=== PATIENT | female | born 1990 | race Caucasian/White ===

== ENCOUNTER 2019-09-24 10:42 | Emergency (ER) | payer MEDICAID, OTHER ==
--- NOTE | 2019-09-24 11:28 | ER Document Report ---
ED Medical Screen (RME) - General Chief Complaint: Vag Bleeding, +preg <12wks Stated Complaint: VAGINAL BLEEDING Time Seen by Provider: 09/24/19 11:22 Primary Care Provider: ANA M DARLING [Primary Care Provider] - Follow up as needed - [facility] Notes: 09/24/19 11:26 28-year-old female 1 para 0 who is 13 weeks presents to the emergency room for vaginal bleeding postcoital last night, states she passed a golf size blood clot, states she has not had much bleeding this morning. Contacted the health department was currently her IN FLIGHT TECHNICIAN who advised her to come to the emergency room. Patient is taking prenatals. Reports mild cramping. Denies any chest pain, fever chills, shortness of breath. I have greeted and performed a rapid initial assessment of this patient. A comprehensive ED assessment and evaluation of the patient, analysis of test results and completion of the medical decision making process will be conducted by additional ED providers. PHYSICAL EXAMINATION: GENERAL: Well-appearing, well-nourished and in no acute distress. CV: s1, s2 regular LUNGS: No respiratory distress abd: lower abd pain Musculoskeletal: Normal range of motion Past Medical History - Social History Chew tobacco use (# tins/day): No Frequency of alcohol use: None Drug Abuse: None Physical Exam - Vital signs Vitals: Temp Pulse Resp BP Pulse Ox 98.9 F 112 H 18 107/59 L 100 09/24/19 10:46 09/24/19 10:46 09/24/19 10:46 09/24/19 10:46 09/24/19 10:46 Course - Vital Signs Vital signs: Temp Pulse Resp BP Pulse Ox 98.9 F 112 H 18 107/59 L 100 09/24/19 10:46 09/24/19 10:46 09/24/19 10:46 09/24/19 10:46 09/24/19 10:46 Doctor's Discharge - Discharge Referrals: ANA M DARLING [Primary Care Provider] - Follow up as needed
[2019-09-24 11:53] LABS: ABSOLUTE LYMPHOCYTES (AUTO) 1.2 10^3/uL (0.5-4.7); ABSOLUTE MONOCYTES (AUTO) 0.5 10^3/uL (0.1-1.4); ABSOLUTE NEUT (AUTO) 6.6 10^3/uL (1.7-8.2); BASOPHILS % (AUTO) 0.2 % (0-2); EOSINOPHILS % (AUTO) 0.4 % (0-6); HEMATOCRIT 36.6 % (36.0-47.0); HEMOGLOBIN 12.6 g/dL (12.0-15.5); LYMPHOCYTES % (AUTO) 14.4 % (13-45); MEAN CORPUSCULAR HGB CONC 34.4 g/dL (32.0-36.0); MEAN CORPUSCULAR VOLUME 84 fl (80-97); MONOCYTES % (AUTO) 5.6 % (3-13); PLATELET COUNT 280 10^3/uL (150-450); RED BLOOD COUNT 4.35 10^6/uL (3.72-5.28); RED CELL DISTRIBUTION WIDTH 14.3 % (11.5-14.0); SEGMENTED NEUTROPHILS % (AUTO) 79.4 % (42-78); TOTAL CELLS COUNTED % (AUTO) 100 %; WHITE BLOOD COUNT 8.4 10^3/uL (4.0-10.5)
[2019-09-24 12:01] LABS: AMORPHOUS SEDIMENT,URINE TRACE /HPF; APPEARANCE,URINE CLOUDY; BILIRUBIN,URINE NEGATIVE (NEGATIVE); COLOR,URINE YELLOW; GLUCOSE, URINE NEGATIVE (NEGATIVE); KETONES,URINE NEGATIVE (NEGATIVE); LEUKOCYTE ESTERASE,URINE NEGATIVE (NEGATIVE); NITRITE,URINE NEGATIVE (NEGATIVE); PROTEIN,URINE NEGATIVE (NEGATIVE); URINE SPECIFIC GRAVITY 1.017
[2019-09-24 12:15] LABS: ALBUMIN 4.3 g/dL (3.5-5.0); ALKALINE PHOSPHATASE 42 U/L (38-126); ANION GAP 6 (5-19); ASPARTATE AMINO TRANSFERASE 25 U/L (14-36); BILIRUBIN,TOTAL 0.5 mg/dL (0.2-1.3); BLOOD UREA NITROGEN 8 mg/dL (7-20); CARBON DIOXIDE 25 mmol/L (22-30); CHLORIDE 106 mmol/L (98-107); GLUCOSE 90 mg/dL (75-110); POTASSIUM 3.7 mmol/L (3.6-5.0); TOTAL PROTEIN 7.6 g/dL (6.3-8.2)
--- NOTE | 2019-09-24 12:31 | RADIOLOGY REPORT (SQ) ---
EXAM DESCRIPTION: U/S [id number] TRNABD 1GES W/ODOP IMAGES COMPLETED DATE/TIME: 09/24/2019 12:19 pm REASON FOR STUDY: vaginal bleeding, 13w, COMPARISON: None. TECHNIQUE: Transabdominal static and realtime grayscale images acquired of the pelvis. Additional se lected spectral and color Doppler images recorded. All images stored on PACs. bHCG: Not available CLINICAL DATES: LMP 06/19/2019 13 weeks 6 days LIMITATIONS: None. FINDINGS: FETUS: Single Living intrauterine . ULTRASOUND EGA: 13 weeks 6 days ULTRASOUND TAI: 03/25/2020 EFW: Not applicable less than 20 weeks. CRL: 7.9 cm FHR: 158 beats per minute. SURVEY: Too early to assess. AMNIOTIC FLUID: Adequate amount. PLACENTA: Not yet developed due to early gestation. SUBCHORIONIC BLEED: Yes SIZE OF BLEED: 2.6 x 0.7 x 0.9 cm. UTERUS: No masses. No anomalies. CERVICAL LENGTH: 3 cm Closed. RIGHT ADNEXA: Normal ovary with normal vascular flow. No adnexal free fluid. No adnexal masses. LEFT ADNEXA: Normal ovary with normal vascular flow. No adnexal free fluid. No adnexal masses. FREE FLUID: None. OTHER: No other significant finding. IMPRESSION: LIVING INTRAUTERINE . EGA 13 weeks 6 days Trimester of : Second trimester - 13 weeks 1 day to 27 weeks 6 days. TECHNICAL DOCUMENTATION: JOB ID: [id number] 2010 [employer]- All Rights Reserved rev Reading location - IP/workstation name: [email or web address]
--- NOTE | 2019-09-24 15:13 | ER Document Report ---
ED General - General Chief Complaint: Vag Bleeding, +preg <12wks Stated Complaint: VAGINAL BLEEDING Time Seen by Provider: 09/24/19 11:22 Primary Care Provider: PHONG,NO [Primary Care Provider] - Follow up as needed Notes: 28-year-old female who is 13 weeks 6 days G1, P0 presents emergency department complaining of a golf ball sized clot associated with bright red vaginal bleeding last evening that lasted approximately 1 hour after having intercourse. Patient states she has not had any bleeding since last evening, complains of mild lower abdominal pressure that is constant. Denies prior bleeding in this . States she is following with the health department and has a follow-up appointment a week and a half from now. - Related Data Allergies/Adverse Reactions: No Known Allergies Allergy (Unverified 09/24/19 11:30) Past Medical History - General Information source: Patient - Social History Smoking Status: Former Smoker Chew tobacco use (# tins/day): No Frequency of alcohol use: None Drug Abuse: None Family History: Reviewed & Not Pertinent Patient has homicidal ideation: No Review of Systems - Review of Systems Constitutional: No symptoms reported Gastrointestinal: See HPI Female Genitourinary: See HPI -: Yes All other systems reviewed and negative Physical Exam - Vital signs Vitals: Temp Pulse Resp BP Pulse Ox 98.9 F 112 H 18 107/59 L 100 09/24/19 10:46 09/24/19 10:46 09/24/19 10:46 09/24/19 10:46 09/24/19 10:46 Interpretation: Tachycardic - Notes Notes: GENERAL: Alert, interacts well. No acute distress. HEAD: Normocephalic, atraumatic EYES: Pupils equal, round and reactive to light, extraocular movements intact. ENT: Oral mucosa moist, tongue midline. NECK: Full range of motion, supple, trachea midline. LUNGS: Clear to auscultation bilaterally, no wheezes, rales or rhonchi, no respiratory distress. HEART: Regular rate and rhythm, no murmurs, gallops, rubs. ABDOMEN: Soft, nontender, uterus barely palpable above the pubic symphysis, appropriate for dates, bowel sounds present in all 4 quadrants. EXTREMITIES: Moves all 4 extremities spontaneously, no edema. No cyanosis. NEUROLOGICAL: Alert and oriented x3, normal speech. PSYCH: Normal mood, normal affect. SKIN: Warm, Dry, normal turgor, no rashes or lesions noted. Course - Re-evaluation Re-evalutation: 09/24/19 15:09 Obstetrics Ultrasound 09/24/19 11:25 IMPRESSION: LIVING INTRAUTERINE . EGA 13 weeks 6 days Trimester of : Second trimester - 13 weeks 1 day to 27 weeks 6 days. There is a 2.6 x 0.7 x 0.9 cm subchorionic hemorrhage. Patient is AB+, RhoGam is not indicated, blood work generally unremarkable. Patient counseled on pelvic rest and discharged home. - Vital Signs Vital signs: Temp Pulse Resp BP Pulse Ox 98.9 F 112 H 18 107/59 L 100 09/24/19 10:46 09/24/19 10:46 09/24/19 10:46 09/24/19 10:46 09/24/19 10:46 - Laboratory Result Diagrams: 09/24/19 11:35 09/24/19 11:35 Laboratory results interpreted by me: 09/24/19 09/24/19 09/24/19 11:30 11:35 11:35 RDW 14.3 H Seg Neutrophils % 79.4 H Sodium 136.9 L Creatinine 0.43 L Serum HCG, Qual Urine Urobilinogen 2.0 H 09/24/19 11:35 RDW Seg Neutrophils % Sodium Creatinine Serum HCG, Qual POSITIVE H Urine Urobilinogen Discharge - Discharge Clinical Impression: Subchorionic hematoma Qualifiers: Fetus number: single or unspecified fetus Trimester: first trimester Qualified Code(s): O41.8X10 - Other specified disorders of amniotic fluid and membranes, first trimester, not applicable or unspecified; O46.8X1 - Other antepartum hemorrhage, first trimester Condition: Stable Disposition: HOME, SELF-CARE Additional Instructions: You have a subchorionic hematoma. It is 2.6 x 0.7 x 0.9 cm. Your cervix is closed. You should remain on complete pelvic rest for the next 2 weeks. This means no douching, no sex, no tampons, no anything in the vagina. If you develop further bright red bleeding, particularly if it is more than you had last night you should return to the emergency department. A small amount of dark brown blood is normal, and a very small amount of bright red blood can also be normal. Usually your will progress to a full-term without any further complications from this bleed. It is still important that you follow-up with your APPLICATION INFRASTRUCTURE ENGINEER as an outpatient. You do not need to be on bedrest. Please keep your follow-up appointment with the health department next Monday. Forms: Return to Work
[2019-09-24 15:43] VITALS: BP 92/58
== END 2019-09-24 18:30 | disposition home or self-care (01) ==
LOC: ER 10:42
DX: O20.8 Other hemorrhage in early pregnancy (principal); Z3A.13 13 weeks gestation of pregnancy; Z87.891 Personal history of nicotine dependence
CPT/HCPCS: 36415; 76801; 80053; 81001; 83690; 84703; 85025; 86900; 86901; 99284

== ENCOUNTER 2020-02-17 11:00 | Outpatient (CLI) | payer MEDICAID ==
--- NOTE | 2020-02-17 11:47 | Non Stress Test Report ---
Non Stress Test Datetime Report Generated by CPN: 02/17/2020 11:47 DEMOGRAPHIC Test Number: 1 EGA NST: 34.5 INDICATION Indication for Study (NST) Other: repeat from providers office; 2 vessel cord VITAL SIGNS Temperature - NST: 97.3 Pulse - NST: 115 RESP - NST: 18 NBPSYS NST: 116 NBPDIA NST: 71 MONITORING Monitor Explained: Monitor Explained; Test Explained; Patient Verbalized Understanding (Annotations: Data stored by [facility] on behalf of user) Time on Monitor: 02/17/2020 11:10 Time off Monitor: 02/17/2020 11:40 NST Duration: 30 NST INTERVENTIONS NST Interventions: PO Hydration; Reposition Patient Physician Notified NST: N Galeas, CNM BABY A: [id number] BABY A Movement : Present Contraction Frequency : 0 FHR Baseline : 135 Accelerations : 15X15 Decelerations : None Variability : Moderate 6-25bpm NST Review: Meets Criteria for Reactive NST NST Review and Verified By : Eric Arroyo RN NST Results: Reactive NST REPORT Report Trigger: Send Report
== END 2020-02-17 11:42 | disposition home or self-care (01) ==
LOC: LC 11:00
PROVIDERS: ATTEND Obstetrics & Gynecology
DX: Z34.03 Encounter for supervision of normal first pregnancy, third trimester (principal); Z3A.34 34 weeks gestation of pregnancy
CPT/HCPCS: 59025

== ENCOUNTER 2020-03-04 17:16 | Outpatient (CLI) | payer MEDICAID ==
[2020-03-04 18:30] LABS: APPEARANCE,URINE SLIGHTLY-CLOUDY; BILIRUBIN,URINE NEGATIVE (NEGATIVE); COLOR,URINE YELLOW; GLUCOSE, URINE NEGATIVE (NEGATIVE); KETONES,URINE NEGATIVE (NEGATIVE); LEUKOCYTE ESTERASE,URINE TRACE (NEGATIVE); NITRITE,URINE NEGATIVE (NEGATIVE); PROTEIN,URINE NEGATIVE (NEGATIVE); URINE SPECIFIC GRAVITY 1.021; UROBILINOGEN,URINE NEGATIVE mg/dL (<2.0)
--- NOTE | 2020-03-04 18:38 | Non Stress Test Report ---
Non Stress Test Datetime Report Generated by CPN: 03/04/2020 18:38 DEMOGRAPHIC Test Number: 2 EGA NST: 37.0 INDICATION Indication for Study (NST) Other: labor check VITAL SIGNS Temperature - NST: 97.3 Pulse - NST: 113 RESP - NST: 18 NBPSYS NST: 113 NBPDIA NST: 74 MONITORING Time on Monitor: 03/04/2020 17:38 Time off Monitor: 03/04/2020 18:38 NST Duration: 60 NST INTERVENTIONS NST Interventions: PO Hydration; Reposition Patient Physician Notified NST: M Grace MD BABY A: [id number] BABY A Movement : Present Contraction Frequency : irreg FHR Baseline : 135 Accelerations : 15X15 Decelerations : None Variability : Moderate 6-25bpm NST Review: Meets Criteria for Reactive NST NST Results: Reactive NST REPORT Report Trigger: Send Report
[2020-03-04 18:47] LABS: URINE AMPHETAMINES SCREEN NEGATIVE; URINE BARBITURATES SCREEN NEGATIVE; URINE BENZODIAZEPINES SCREEN NEGATIVE; URINE COCAINE SCREEN NEGATIVE; URINE MARIJUANA (THC) SCREEN NEGATIVE; URINE METHADONE SCREEN NEGATIVE; URINE PHENCYCLIDINE SCREEN NEGATIVE
== END 2020-03-04 18:52 | disposition home or self-care (01) ==
LOC: LC 17:16
PROVIDERS: ATTEND Obstetrics & Gynecology
DX: O47.03 False labor before 37 completed weeks of gestation, third trimester (principal); Z3A.36 36 weeks gestation of pregnancy
CPT/HCPCS: 80307; 81005; 84112

== ENCOUNTER 2020-03-27 08:12 | Outpatient (CLI) | payer MEDICAID ==
[2020-03-27 09:02] LABS: APPEARANCE,URINE CLOUDY; BILIRUBIN,URINE NEGATIVE (NEGATIVE); COLOR,URINE YELLOW; GLUCOSE, URINE NEGATIVE (NEGATIVE); KETONES,URINE NEGATIVE (NEGATIVE); LEUKOCYTE ESTERASE,URINE NEGATIVE (NEGATIVE); NITRITE,URINE NEGATIVE (NEGATIVE); PROTEIN,URINE 30 mg/dL (NEGATIVE); URINE SPECIFIC GRAVITY 1.026; UROBILINOGEN,URINE NEGATIVE mg/dL (<2.0)
[2020-03-27 09:46] LABS: URINE AMPHETAMINES SCREEN NEGATIVE; URINE BARBITURATES SCREEN NEGATIVE; URINE BENZODIAZEPINES SCREEN NEGATIVE; URINE COCAINE SCREEN NEGATIVE; URINE MARIJUANA (THC) SCREEN NEGATIVE; URINE METHADONE SCREEN NEGATIVE; URINE PHENCYCLIDINE SCREEN NEGATIVE
[2020-03-27] MEDS ORDERED: HYDROXYZINE PAMOATE 50 MG CAPSULE PO ONE (10:19)
[2020-03-27] MEDS ORDERED: HYDROXYZINE PAMOATE 50 MG CAPSULE ONE (10:30)
--- NOTE | 2020-03-27 10:46 | Non Stress Test Report ---
Non Stress Test Datetime Report Generated by CPN: 03/27/2020 10:46 DEMOGRAPHIC Test Number: 3 EGA NST: 40.2 INDICATION Indication for Study (NST) Other: labor check VITAL SIGNS Temperature - NST: 97.8 Pulse - NST: 87 RESP - NST: 14 NBPSYS NST: 108 NBPDIA NST: 69 MONITORING Time on Monitor: 03/27/2020 08:30 Time off Monitor: 03/27/2020 10:30 NST Duration: 120 NST INTERVENTIONS NST Interventions: PO Hydration; Reposition Patient Physician Notified NST: Dr Davis BABY A: [id number] BABY A Movement : Present Contraction Frequency : 7-8 FHR Baseline : 135 Accelerations : 15X15 Decelerations : None Variability : Moderate 6-25bpm NST Review: Meets Criteria for Reactive NST NST Review and Verified By : JAQUAN Green NSLito Results: Reactive NST REPORT Report Trigger: Send Report
== END 2020-03-27 10:46 | disposition home or self-care (01) ==
LOC: LC 08:12
PROVIDERS: ATTEND Obstetrics & Gynecology
DX: O47.1 False labor at or after 37 completed weeks of gestation (principal); Z3A.40 40 weeks gestation of pregnancy
CPT/HCPCS: 59025; 81005; 80307; J3490